=== PATIENT | female | born 1975 | race Caucasian/White ===

== ENCOUNTER → 2017-12-12 | Outpatient (CLI) | payer OTHER | LOC: MC.RAD 14:40 | DX: Z12.31 Encounter for screening mammogram for malignant neoplasm of breast (principal) ==

== ENCOUNTER → 2018-06-24 | Outpatient (CLI) | payer OTHER | LOC: COL.RAD 10:17 | DX: N80.9 Endometriosis, unspecified (principal); Z90.721 Acquired absence of ovaries, unilateral; Z87.42 Personal history of other diseases of the female genital tract ==

== ENCOUNTER 2020-07-29 03:45 | Inpatient (IN) | payer OTHER ==
[2020-07-29] VITALS (47 sets, daily range): BP systolic 100–145; BP diastolic 53–95; PULSE 63–107; TEMP 97.6–98.8
[~2020-07-29] VITALS: Ht 170.2 cm; Wt 89.5 kg
--- NOTE | 2020-07-29 03:40 | NUR ---
0340- PT. AMBULATORY TO THE UNIT WITH BY HER SIDE ORIENTATED TO ROOM AND CHANGED INTO CLEAN GOWN. REPORTS GFM, NO BLEEDING AND SROM AROUND 0200 AT HOME THIS MORNING. FEELING MIND OCCASIONAL CONTRACTIONS. SHE IS A PATIENT OF DR. ANTONIO. 0346- EFM AND TOCO ON AND TRACING. VITALS TAKEN, ASSESSMENT COMPLETED. 0350- SVE /-3, WITH POSITIVE AMNIOTRACE. DISCUSSED PLAN OF CARE AND CALLED PHYSICIAN CHIEF UNIT FORESTER, SEE PHYSICIAN NOTIFICATION.
--- NOTE | 2020-07-29 04:30 | NUR ---
PT. DENIES COVID EXPOSURE. DISCUSSED ENCOURAGMENT TO GET SWABBED WHILE HERE AT THE HOSPITAL. PT. REFUSING SWAB AT THIS TIME STATING SHE DOES NOT THINK IT IS NECESSARY AT THIS TIME.
[2020-07-29] MEDS ORDERED: CALCIUM CARBON650 M2 (04:51)
[2020-07-29] MEDS ORDERED: ONE-A-DAY ESSE1 EACH PO (04:51)
--- NOTE | 2020-07-29 05:25 | NUR ---
0525-THIS RN TO BEDSIDE WITH EDUCATION PACKET AND PITOCIN PACK TO START AUGMENTING LABOR PER DOCTORS ORDERS. 0528- WHILE IN THE ROOM FHR AUDIBLY DECELERATES AND TRACES DOWN TO 80S BUT IS TRACING INTERMITTENTLY DUE TO AUDIBLE MOVEMENT. MATERNAL 02 SAT PLACED ON MOM AND TRACING. 0530- FHR TRACING CONSISTENTLY AGAIN AND BACK IN THE 120-130 RANGE. DISCUSSED HOLDING OFF ON PITOCIN FOR NOW AND WATCHING FHR FOR AT LEAST 20 MINUTES. 0535- SVE /-3.
[2020-07-29 06:06] LABS: BASO % 0.4 % (0.0-2.0); EOS # 0.1 (0.0-0.7); EOS % 0.9 % (0-4.0); GRAN # 7.8 (1.4-6.5); GRAN % 74.1 % (42.2-75.2); HEMATOCRIT 39.1 % (37.0-47.0); HEMOGLOBIN 13.2 g/dl (12.5-16.0); LYMPH # 1.9 (1.2-3.4); LYMPH % 18.3 % (20.0-51.0); MEAN CELL VOLUME 90 fl (80.0-100.0); MEAN CORPUSCULAR HEMOGLOBIN 31 pg (27.0-31.0); MEAN CORPUSCULAR HGB CONC 34 g/dl (33.0-37.0); MEAN PLATELET VOLUME 10.1 fl (7.4-10.4); MONO # 0.6 (0.1-0.6); MONO % 5.3 % (1.7-9.3); PLATELET COUNT 268 K/mm3 (130-400); RED BLOOD COUNT 4.33 M/mm3 (4.10-5.30)
--- NOTE | 2020-07-29 06:30 | NUR ---
Bedside report received from Luda ESCOBAR. Patient updated on plan of care and has no needs at this time. 0644: Pitocin augmentation discussed and patient agrees with plan. Pitocin started at 2mU/hr per protocol. 0705: Dr. Zambrano called and updated. See physician notification. 0830: Dr. Zambrano at bedside and assess patient and FHR strip. 0833: SVE per physician and patient updated on plan of care. 0844: Patient requests epidural and Jono Leigh TRAVELING ACCOUNTANT notified.
--- NOTE | 2020-07-29 09:20 | NUR ---
FHR baseline 145bpm with recurrent variables and early decelerations noted. Patient off monitors to void. 0921: Patient sitting up for epidural at this time and Jono Leigh CRNA at bedside. 0932: Single shot given and patient tolerates well. 0935: Patient repositioned and safety/plan of care discussed. 1015: FHR baseline 145bpm and recurrent variable decelerations noted with spontaneous return to baseline. 1020: Negron catheter placed and patient tolerates well. SVE-3/70/-2 Patient states she feel "out of it and chest is heavy" and would like to lower dose of epidural. Jono Leigh CRNA notified. This RN evaluating blood pressures. 1025: Patient right lateral with left leg resting in stirrup. FHR baseline 145bpm and gradually decreasing to 100bpm and returns to baseline. 1028: Jono Leigh CRNA at bedside and loweres pump rate.
--- NOTE | 2020-07-29 11:00 | NUR ---
Orders received by Dr. Zambrano to continue to increase pitocin. FHR baseline 145-155bpm and recurrent variable deceleration noted. Patient left lateral and right leg resting in stirrup. 1130: Patient sitting up in nikole position. Recurrent deep variable decelerations noted with each contraction and spontaneous return to baseline. 1225: SVE-3-4/70/-1 and recurrent early/variable decelerations noted. Patient right lateral. 1325: SVE-6/90/-1 and recurrent early decelerations noted. Patient repositioned. Patient becoming more uncomfortable with contractions and Jono Leigh MEDICAL CHEMIST notified. 1350: SVE-8/100/+1 and patient high fowlers position. Late decelerations tracing. Patient repositioned. 1405: SVE-10/100/+2 and patient practice pushes with contraction. 1412: Dr. Zambrano called in for delivery. Patient prepped for vaginal delivery. 1418: Dr. Zambrano at bedside and bed taken apart. 1420: Pericare done and patient pushes with contractions 1421: Spontaneous vaginal delivery of viable female- head followed by body. Infant to patients abdomen and Power RN assumes care of . 1424: Spontaneous delivery of placenta and pitocin bolus started per protocol at 333mU/hr. Fundal massage done/firm/bleeding WNL. Laceration repaired and pericare done Patient repositioned/ice pack to perineum/plan of care discussed.
[2020-07-30 03:30] VITALS: BP 91/56; PULSE 87; TEMP 98
[2020-07-30 07:54] VITALS: BP 103/68; PULSE 70; TEMP 97.7
[2020-07-30] MEDS ORDERED: IBU800 M1 PO (09:27)
[2020-07-30 12:00] VITALS: BP 97/57; PULSE 88; TEMP 98.3
[2020-07-30 16:00] VITALS: BP 129/75; PULSE 68; TEMP 97.7
[2020-07-30 20:00] VITALS: BP 111/67; PULSE 67; TEMP 97.7
[2020-07-31 07:00] VITALS: BP 117/68; PULSE 69; TEMP 97.8
--- NOTE | 2020-07-31 09:20 | NUR ---
Initial visit; Parents thanked Policy Writer Sales for offering congratulations and God's blessings for the of their daughter. Policy Writer Sales thanked family for choosing [facility].
== END 2020-07-31 12:00 | disposition home or self-care (01) | DRG 807 ==
LOC: LDRO 03:45 → LDR 03:46 → LDRO 04:00 → LDR 04:12 → OB 04:12
PROVIDERS: Obstetrics & Gynecology; ADMIT Obstetrics & Gynecology
PROC: 10E0XZZ Delivery of Products of Conception, External Approach (ICD-10-PCS; principal; 2020-07-29)
PROC: 0HQ9XZZ Repair Perineum Skin, External Approach (ICD-10-PCS; 2020-07-29)
DX: O99.344 Other mental disorders complicating childbirth (principal); Z37.0 Single live birth; F41.9 Anxiety disorder, unspecified; F32.9 Major depressive disorder, single episode, unspecified; O34.13 Maternal care for benign tumor of corpus uteri, third trimester; D25.9 Leiomyoma of uterus, unspecified; N94.89 Other specified conditions associated with female genital organs and menstrual cycle; O70.0 First degree perineal laceration during delivery; Z3A.37 37 weeks gestation of pregnancy
CPT/HCPCS: J2400; J2590; J2795; J7120

== ENCOUNTER → 2022-03-11 | Outpatient (CLI) | payer OTHER ==
[~2022-03-11] MED LIST: CALCIUM CARBON650 M2; IBU800 M1 PO; ONE-A-DAY ESSE1 EACH PO
== END ==
LOC: MC.RAD 11:23
DX: Z12.31 Encounter for screening mammogram for malignant neoplasm of breast (principal)